=== PATIENT | female | born 1990 ===

== ENCOUNTER 2018-11-30 14:00 | Inpatient (IN) | payer OTHER ==
[~2018-11-30] VITALS: Ht 165.1 cm; Wt 82.6 kg
== END 2018-12-28 12:02 | DRG 768 ==
LOC: O/R 14:00 → OB/GYN 12-25 14:00 → EDBD 12-25 14:00 → OB/GYN 12-25 15:44 → LDR 12-25 15:44 → OB/GYN 12-25 16:11 → LDR 12-25 16:23 → OB/GYN 12-26 16:26
PROVIDERS: ADMIT Obstetrics & Gynecology
PROC: 4A1HXCZ Monitoring of Products of Conception, Cardiac Rate, External Approach (ICD-10-PCS; 2018-12-25)
PROC: 10E0XZZ Delivery of Products of Conception, External Approach (ICD-10-PCS; principal; 2018-12-26)
PROC: 0DQR0ZZ Repair Anal Sphincter, Open Approach (ICD-10-PCS; 2018-12-26)
PROC: 3E0P7VZ Introduction of Hormone into Female Reproductive, Via Natural or Artificial Opening (ICD-10-PCS; 2018-12-26)
DX: O70.21 Third degree perineal laceration during delivery, IIIa (principal); Z37.0 Single live birth; Z3A.40 40 weeks gestation of pregnancy

== ENCOUNTER 2018-12-21 09:08 | Outpatient (CLI) | payer OTHER | END 2018-12-21 09:58 | disposition home or self-care (01) | LOC: NST 09:08 | DX: Z34.83 Encounter for supervision of other normal pregnancy, third trimester (principal) ==

== ENCOUNTER 2018-12-24 09:15 | Outpatient (CLI) | payer OTHER | END 2018-12-24 10:26 | disposition home or self-care (01) | LOC: NST 09:15 | DX: Z34.83 Encounter for supervision of other normal pregnancy, third trimester (principal) ==